=== PATIENT | female | born 1980 | race Caucasian/White ===

== ENCOUNTER 2022-06-04 10:04 | Inpatient (IN) | payer OTHER, SELFPAY ==
[2022-06-04] VITALS (17 sets, daily range): BP systolic 134–207; BP diastolic 85–124; PULSE 97–130; RESP 12–20; TEMP 36.4–37; O2SAT 91–100; BMI 43.2
--- NOTE | 2022-06-04 10:18 | ED_ITS ---
HPI - Abdominal Pain General: Chief Complaint: Abdominal Pain Stated Complaint: abd pain Time Seen by Provider: 06/04/22 10:18 History of Present Illness: Ms. Joseph is a 42-year-old lady presenting to the emergency department due to abdominal pain. She reports onset of symptoms acut jonathan on 06/01 with right lower quadrant pain that radiates throughout the abdomen and into her back. It is sharp and stabbing in character. Moderate to severe in intensity. Worse with laying down and movement. She notes numerous episodes of nonbilious and nonbloody emesis. No other specific changes in health, exacerbating, or alleviating factors identified. Onset (ago): day(s) Pain Consistency: constant Location: RLQ Severity: severe Quality: stabbing and sharp Radiation: epigastric and R flank Exacerbating factors: movement Relieving factors: nothing Associated Symptoms: Reports nausea and vomiting; Denies hematochezia, hematemesis and melena Review of Systems General: Reports: 10 or more systems reviewed and unremarkable except in HPI and below GI: Reports: nausea and vomiting; Denies: hematemesis, hematochezia or melena PFS ED PFSH: Surgical History (Updated 06/12/22 @ 12:49 by Geneva Bocanegra RN) History of Physical Exam Const: COMMON NORMALS: alert GENERAL APPEARANCE: cooperative and well developed HENMT: COMMON NORMALS: normocephalic and atraumatic HEAD & SCALP: normocephalic and atraumatic Eye: COMMON NORMALS: conjunctivae normal CONJUNCTIVA: Yes conjunctivae normal SCLERA: sclerae normal Neck/C-Spine: COMMON NORMALS: supple GENERAL: Yes trachea midline Resp: COMMON NORMALS: clear to auscultation bilaterally EFFORT & INSPEC TION: Yes able to speak in complete sentences AUSCULTATION: clear to auscultation bilaterally Cardio: COMMON NORMALS: regular rate and regular rhythm RATE: regular rate RHYTHM: regular rhythm GI: COMMON NORMALS: Soft to palpation PALPATION: Yes Soft to palpation, Yes Tenderness to palpation present (GI), No Guarding due to palpation present (GI) and No Rigid due to palpation PERCUSSION: normal to percussion Back/Pelvis: OTHER: R>L CVA tenderness Extremity: GENERAL: Yes normal exam except as noted and No edema Neuro: COMMON NORMALS: moves all extremities SENSORIUM/ORIENTATION: Yes alert and No Orientation impaired Psych: COMMON NORMALS: mental status grossly normal and Normal thought process present THOUGHT PROCESS: Normal thought process present Course Vital Signs: Vital signs: Vital Signs Temperature 98.4 F 06/07/22 08:00 Pulse Rate 98 06/07/22 14:00 Respiratory Rate 16 06/07/22 12:00 Blood Pressure 145/87 06/07/22 16:17 Pulse Oximetry 95 06/07/22 12:00 Oxygen Delivery Me thod 06/07/22 12:00 Oxygen Flow Rate 2 06/06/22 20:00 MDM - Abdominal Pain Medical Decision Making 42-year-old lady presenting with abdominal pain. Abdominal tenderness to palpation without evidence of acute surgical abdomen. Additionally there is right greater than left CVA tenderness. Patient is nontoxic in appearance. Laboratory studies notable for leukocytosis, normal hemoglobin. Metabolic panel with evidence of dehydration and mildly elevated creatinine with unclear baseline. Urinalysis with squamous epithelial contamination. CT imaging demonstrates acute appendicitis with inflammation of the terminal ileum. Additional finding includes left-sided staghorn calculi. I discussed this finding with the patient as well as finding of acute appendicitis. Patient treated during ED course with antiemetic, fluids, analgesia and also antibiotics. Patient requires inpatient management of acute appendicitis. The results of ED evaluation were discussed with the patient including plan for admission due to requirement for level of care not available if discharged to prevent significant worsening/deterioration. Patient agreeable with plan. Discussed with general surgery service who was agreeable to admit patient. Medical Records I reviewed the patient's medical records. Lab Data I reviewed the patient's lab results. 06/07/22 05:08 06/07/22 05:08 Labs/Radiology: Radiology Impressions Abdomen/Pelvis CT 06/04/22 10:52 IMPRESSION: 1. Findings consistent with acute appendicitis. 2. Inflammatory changes in the terminal ileum could be related to appendicitis. Recommend follow-up to demonstrate resolution, and to exclude inflammatory bowel disease. 3. The entirety of the left-sided renal collecting system is filled with staghorn calculi extending from the proximal renal calices to the ureteropelvic junction, with prominent peripheral renal caliectasis and cortical thinning. THIS REPORT CONTAINS FINDINGS THAT MAY BE CRITICAL TO PATIENT CARE. The findings were verbally communicated via telephone conference with Sudeep Nova at 12:00 PM REEFER ENGINEER on 06/04/2022. The findings were acknowledged and understood. Laboratory Results WBC 22.1 10^3/uL (4.0-10.0) H 06/05/22 05:36 RBC 4.03 10^6/uL (4.1-5.3) L 06/05/22 05:36 Hgb 11.9 g/dL (11.5-15.3) 06/05/22 05:36 Hct 36.4 % (37.0-47.0) L 06/05/22 05:36 MCV 90.3 fl (81-99) 06/05/22 05:36 MCH 29.5 pg (28.0-34.0) 06/05/22 05:36 MCHC 32.7 g/dL (30.0-36.0) 06/05/22 05:36 RDW 14.2 % (12.1-15.1) 06/05/22 05:36 Plt Count 387 10^3/cmm (130-400) 06/05/22 05:36 MPV 10.1 fL (7.4-10.4) 06/05/22 05:36 Neut % (Auto) 92.3 % 06/05/22 05:36 Lymph % (Auto) 3.0 % 06/05/22 05:36 Ellis % (Auto) 3.9 % 06/05/22 05:36 Eos % (Auto) 0.2 % 06/05/22 05:36 Baso % (Auto) 0.1 % 06/05/22 05:36 Neut # (Auto) 20.35 10^3/uL (1.8-7.7) H 06/05/22 05:36 Lymph # (Auto) 0.7 10^3/uL (0.8-4.8) L 06/05/22 05:36 Ellis # (Auto) 0.9 10^3/uL (0.2-0.9) 06/05/22 05:36 Eos # (Auto) 0.1 10^3/uL (0.0-0.8) 06/05/22 05:36 Baso # (Auto) 0.0 10^3/uL (0.0-0.1) 06/05/22 05:36 Nucleated RBC % (auto) 0 % 06/05/22 05:36 Nucleated RBCs # 0.0 /100WBC 06/05/22 05:36 Sodium 140 mmol/L (136-145) 06/05/22 05:36 Potassium 3.8 mmol/L (3.5-5.1) 06/05/22 05:36 Chloride 108 mmol/L (98-107) H 06/05/22 05:36 Carbon Dioxide 22 mmol/L (22-29) 06/05/22 05:36 Anion Gap 13.8 (5-19) 06/05/22 05:36 BUN 10 mg/dL (6-20) 06/05/22 05:36 Creatinine 0.8 mg/dL (0.5-0.9) 06/05/22 05:36 GFR Calculation 77.9 mL/min (90-130) L 06/05/22 05:36 Glucose 144 mg/dL (65-115) H 06/05/22 05:36 POC Glucose 134 mg/dL (70-110) H 06/05/22 06:31 Calculated Osmolality 292 mOsm/kg (285-295) 06/05/22 05:36 Lactate 2.2 mmol/L (0.5-2.2) 06/04/22 10:35 Calcium 8.2 mg/dL (8.5-10.5) L 06/05/22 05:36 Total Bilirubin 1.1 mg/dL (0.15-1.2) 06/04/22 10:35 AST 17 U/L (0-32) 06/04/22 10:35 ALT 14 U/L (0-33) 06/04/22 10:35 Alkaline Phosphatase 69 U/L (35-105) 06/04/22 10:35 Total Protein 8.4 g/dL (6.6-8.7) 06/04/22 10:35 Albumin 4.4 g/dL (3.5-5.2) 06/04/22 10:35 Globulin 4.0 g/dL (1.3-4.6) 06/04/22 10:35 Lipase 28 U/L (13-60) 06/04/22 10:35 HCG, Qual Negative (Negative) 06/04/22 10:35 Urine Color Yellow (Yellow) 06/04/22 14:32 Urine Appearance Cloudy (CLEAR) A 06/04/22 14:32 Urine pH 8 (5-7) H 06/04/22 14:32 Ur Specific [place] 1.015 (1.005-1.030) 06/04/22 14:32 Urine Protein 1+ (Negative) H 06/04/22 14:32 Urine Glucose (UA) Norm (Normal) 06/04/22 14:32 Urine Ketones Negative (Negative) 06/04/22 14:32 Urine Blood 2+ (Negative) H 06/04/22 14:32 Urine Nitrate Negative (Negative) 06/04/22 14:32 Urine Bilirubin Neg (Negative) 06/04/22 14:32 Prot Sulfosalicylic Acd Positive (Negative) 06/04/22 14:32 Urine Urobilinogen 1 mg/dL (Negative) H 06/04/22 14:32 Ur Leukocyte Esterase 2+ (Negative) H 06/04/22 14:32 Urine RBC 0-4 /hpf (0-2) H 06/04/22 14:32 Urine WBC 55-80 /hpf (0-5) H 06/04/22 14:32 Ur Squamous Epith Cells 25-40 /hpf (0-5) H 06/04/22 14:32 Amorphous Sediment Not Reportable 06/04/22 14:32 Urine Bacteria Trace /hpf (NONE) 06/04/22 14:32 Urine Mucus 1+ /hpf 06/04/22 14:32 Discharge Plan Discharge Patient Disposition: Admitted As Inpatient Admit Provider: Andreas Spencer Clinical Impression: Acute appendicitis Condition: Stable Discharge Diet: Advance as tolerated Discharge Activity: Resume usual activity Coding Level of Care Code ED Wind Farm Engineer for Samy Espinoza
[2022-06-04 10:48] LABS: Basophils # 0.1 10^3/uL (0.0-0.1); Basophils % 0.3 %; Eosinophils % 0.2 %; Hematocrit 41.8 % (37.0-47.0); Hemoglobin 13.8 g/dL (11.5-15.3); Lymphocytes # 1.1 10^3/uL (0.8-4.8); Lymphocytes % 6.2 %; Mean Corpuscular Hemoglobin 29.3 pg (28.0-34.0); Mean Corpuscular Volume 88.7 fl (81-99); Mean Platelet Volume 9.8 fL (7.4-10.4); Monocytes # 0.8 10^3/uL (0.2-0.9); Monocytes % 4.2 %; Neutrophils # 15.98 10^3/uL (1.8-7.7); Neutrophils % 88.8 %; Nucleated Red Blood Cells % 0 %; Platelet Count 548 10^3/cmm (130-400); Red Blood Count 4.71 10^6/uL (4.1-5.3); Red Cell Distribution Width 13.7 % (12.1-15.1)
--- NOTE | 2022-06-04 10:52 | CTR_ITS ---
PROCEDURE INFORMATION: Exam: CT Abdomen And Pelvis With Contrast Exam date and time: 06/04/2022 11:37 AM Age: 42 years old Clinical indication: Abdominal pain; Localized; Right lower quadrant (rlq); Prior surgery; Surgery type: C section; Additional info: Rlq pain, n/v TECHNIQUE: Imaging protocol: Computed tomography of the abdomen and pelvis with contrast. Radiation optimization: All CT scans at this facility use at least one of these dose optimization techniques: automated exposure control; mA and/or kV adjustment per patient size (includes targeted exams where dose is matched to clinical indication); or iterative reconstruction. Contrast material: OMNI 350; Contrast volume: 100 ml; Contrast route: INTRAVENOUS (IV); REPORTING DATA: Count of CT and Cardiac NM exams in prior 12 months: This patient has received 0 known CTs and 0 known cardiac nuclear medicine studies in the 12 months prior to the current study. COMPARISON: No relevant prior studies available. RADIATION DOSE METRICS: Total DLP (mGy-cm): 1172.67 FINDINGS: Liver: The liver is normal in size and contour. Gallbladder and bile ducts: The gallbladder appears unremarkable. No intra- or extra-hepatic biliary ductal dilatation. Pancreas: The pancreas appears normal. Spleen: The spleen appears normal. Adrenal glands: The adrenals appear normal. Kidneys and ureters: The entirety of the left-sided renal collecting system is filled with staghorn calculi extending from the proximal renal calices to the ureteropelvic junction, with prominent peripheral renal caliectasis and cortical thinning. Stomach and bowel: Small hiatal hernia. The remainder of the stomach appears unremarkable. Mild wall thickening in the terminal ileum concerning for mild enteritis. The small bowel loops are not abnormally dilated. The large bowel loops are not abnormally dilated. Appendix: Stone noted at the base of the appendix. The appendix is dilated measuring up to 16 mm in diameter. Appendiceal wall thickening. Periappendiceal fat stranding. Trace free fluid in the pelvis likely related to appendicitis. Intraperitoneal space: No ascites or significant fluid collection. Vasculature: The aorta is nonaneurysmal. The IVC appears normal. Lymph nodes: There are no enlarged lymph nodes. Urinary bladder: The bladder is distended and demonstrates no focal contour abnormality. Reproductive: Unremarkable as visualized. Bones/joints: Unremarkable. Soft tissues: Unremarkable. CT/CT abdomen pelvis w con* [id number] IMPRESSION: 1. Findings consistent with acute appendicitis. 2. Inflammatory changes in the terminal ileum could be related to appendicitis. Recommend follow-up to demonstrate resolution, and to exclude inflammatory bowel disease. 3. The entirety of the left-sided renal collecting system is filled with staghorn calculi extending from the proximal renal calices to the ureteropelvic junction, with prominent peripheral renal caliectasis and cortical thinning. THIS REPORT CONTAINS FINDINGS THAT MAY BE CRITICAL TO PATIENT CARE. The findings were verbally communicated via telephone conference with Sudeep Nova at 12:00 PM ADULT HIGH SCHOOL INSTRUCTOR on 06/04/2022. The findings were acknowledged and understood.
[2022-06-04] MEDS: sodium chloride 0.9% 1,000 ML 999 ML IV (11:00)
[2022-06-04] MEDS: ondansetron 2 mg/ML SDV 2 mL 4 MG IVP (11:00)
[2022-06-04] MEDS: morphine 4 mg/mL SDV 1 mL IVP ×3 (11:00→15:11)
[2022-06-04 11:03] LABS: Alanine Aminotransferase 14 U/L (0-33); Chloride 100 mmol/L (98-107); Lipase 28 U/L (13-60); Sodium 137 mmol/L (136-145); Total Protein 8.4 g/dL (6.6-8.7)
[2022-06-04 11:05] LABS: Lactate (Lactic Acid level) 2.2 mmol/L (0.5-2.2)
[2022-06-04 11:07] LABS: HCG, Serum Qual Negative (Negative)
[2022-06-04 11:34] LABS: Anion Gap 20.7 (5-19); Blood Urea Nitrogen 10 mg/dL (6-20); Calcium 9.4 mg/dL (8.5-10.5); Carbon Dioxide 20 mmol/L (22-29); Glomerular Filtration Rate 60.2 mL/min (90-130); Glucose 160 mg/dL (65-115); Osmolality Calculated 286 mOsm/kg (285-295)
[2022-06-04 11:36] LABS: Albumin Level 4.4 g/dL (3.5-5.2); Alkaline Phosphatase 69 U/L (35-105); Aspartate Amino Transferase 17 U/L (0-32); Potassium 3.7 mmol/L (3.5-5.1); Total Bilirubin 1.1 mg/dL (0.15-1.2)
[2022-06-04] MEDS: iohexol 350 mg/mL 500 mL Btl (per mL) IV (11:36)
[2022-06-04] MEDS: piperacillin-tazobactam 4.5 GM in sodium chloride 0.9% (plus) 50 ML IV (12:15)
--- NOTE | 2022-06-04 13:45 | PC.NURSE ---
ATTEMPTED REPORT NURSE UNAVAILABLE.
--- NOTE | 2022-06-04 13:55 | PC.NURSE ---
REPORT CALLED TO [facility]
[2022-06-04 14:58] LABS: Add Urine Microscopic? YES; Bacteria Urine TRACE /hpf; Bilirubin Urine Neg (Negative); Blood Urine 2+ (Negative); Glucose Urine UA Norm (Normal); Ketones Urine Negative (Negative); Leukocyte Esterase Urine 2+ (Negative); Mucus Urine 1+ /hpf; Nitrate Urine Negative (Negative); Protein Urine 1+ (Negative); RBC Urine 0-4 /hpf (0-2); Specific Gravity, Urine 1.015 (1.005-1.030); Squamous Epithelial Cell Urine 25-40 /hpf (0-5); Sulfosalicylic Acid Urine Positive (Negative); Urine Appearance Cloudy (CLEAR); Urine Color Yellow (Yellow); Urobilinogen Urine 1 mg/dL (Negative); WBC Urine 55-80 /hpf (0-5); pH Urine 8 (5-7)
[2022-06-04] MEDS: sodium chloride 0.9% 1,000 ML 100 ML IV (15:12)
--- NOTE | 2022-06-04 16:15 | PM.HP ---
Providers/Chief Complaint Admitting Physician: Andreas Spencer DO Chief Complaint: abd pain History of Present Illness Heladio Joseph is a 42 year old female who presented to the hospital with a 2-day history of right lower quadrant abdominal pain. She reports that the pain is sharp and constant and radiates to her back. She reports nausea and emesis but denies any hematemesis. She reports diarrhea but denies any hematochezia and/or melena. She has had 2 sections in the past but no other abdominal surgeries. CT in the ER is positive for acute appendicitis. Review of Systems General: Reports: 10 or more systems reviewed and unremarkable except in HPI and below Medications/Allergies Home Medications Medication Instructions Recorded Confirmed Last Taken Type No Known Home Medications 06/04/22 06/04/22 Unknown History Allergies Allergy/AdvReac Type Severity Reaction Status Date / Time No Known Allergies Allergy Verified 06/04/22 10:59 PFSH Acute PFSH: Surgical History History of Female Reproductive History: Date of last menstrual period: 06/04/22 Vitals/I&O/Wt Last Vital Signs Temp 97.6 F 06/04/22 10:08 Pulse 121 H 06/04/22 13:55 Resp 14 06/04/22 15:11 BP 162/111 06/04/22 13:55 Pulse Ox 98 06/04/22 13:55 O2 Del Method 06/04/22 14:55 06/04/22 06/04/22 06/04/22 06:59 14:59 22:59 Intake Total 1050 / 1050 Balance 1050 / 1050 Weight last 48 hrs Weight 260 lb Physical Exam Narrative: General : Patient is well developed , no acute distress, oriented x3 Head : Normal cephalic, a-traumatic. Ears : Pinnae and external canal are normal. Hearing is normal. Eyes : PERRLA, Sclera and injection are normal. No conjunctival discharge. Nose : Mucous membranes are without erythema. Throat : buccal mucosa is normal, gums are without significant recession or hypertrophy. Lungs : Equal chest rise bilaterally, no use of accessory muscles, trachea is midline. Cor : Rate and rhythm are normal. Abdomen : Soft, ND, tender to palpation right lower quadrant, no g/r/m Extremities : No edema, no cyanosis or clubbing, dorsalis pedis pulses are present bilaterally, non-tender to palpation of calves. Upper extremities are normal bilaterally. Back : non-tender to palpation, no CVA tenderness. Neuro : CN II - XII intact, Upper and lower extremities have equal and full strength Data 06/04/22 10:35 06/04/22 10:35 Micro: Microbiology 06/04/22 10:35 Blood Culture - Preliminary Blood SPECIMEN COLLECTED 06/04/22 10:37 Blood Culture - Preliminary Blood SPECIMEN COLLECTED A&P Assessment and plan (1) Acute appendicitis: Plan Laparoscopic Appendectomy The risks and benefits of the procedure, including but not limited to, bleeding, infection, scar, numbness, pain, damage to surrounding structures, conversion to an open procedure, were explained to the patient. He is understanding of the risks and wishes to proceed. Attestations Medical Necessity Statement*: Patient requires at least 1 night in the hospital for IV antibiotics and observation following laparoscopic appendectomy Coding Level of Care Code Acute Code for [facility] Diagnoses Acute appendicitis K35.80
[2022-06-04] MEDS: scopolamine 1.5 Patch 1 PATCH TRANSDERMA (17:07)
--- NOTE | 2022-06-04 17:27 | P.ANESASSM_ITS ---
Pre-Anesthetic Assessment Height/Weight: Height 1.65 m Weight 117.934 kg Temp Pulse Resp BP Pulse Ox O2 Del Method 97.7 F 130 H 20 H 207/123 98 06/04/22 16:58 06/04/22 16:58 06/04/22 16:58 06/04/22 16:58 06/04/22 16:58 06/04/22 16:58 Operation Date: 06/04/22 16:35 Proposed Procedures p Laparoscopic Appendectomy(Not Applicable) - Andreas Spencer DO Familial anesthetic complications: none Was Beta Ely taken within 24 hours: N/A Was Clonidine taken within 24 hours: N/A Social No alcohol and No tobacco Exam alert, oriented x 3, clear to auscultation bilaterally and regular rate & rhythm Airway Submandibular: within normal limits Cervical ROM: within normal limits Mallampati: Class III Dentition: full GI acute abdomen Metabolic Morbid Obesity Anesthetic Plan ASA status: 2E Anesthesia: General (RSI) Medications/Allergies Home Medications Medication Instructions Recorded Confirmed Last Taken Type No Known Home Medications 06/04/22 06/04/22 Unknown History Allergies Allergy/AdvReac Type Severity Reaction Status Date / Time No Known Allergies Allergy Verified 06/04/22 10:59 Current Medications Generic Name Dose Route Start Last Admin Trade Name Freq PRN Reason Stop Dose Admin Sodium Chloride 1,000 mls @ 100 mls/hr 06/04/22 14:41 06/04/22 15:12 Sodium Chloride 0.9% IV 100 mls/hr .Q10H JULIO Administration Morphine Sulfate 4 mg 06/04/22 14:41 06/04/22 15:11 Morphine 4 Mg/Ml Sdv 1 Ml IVP 4 mg Q1H PRN Administration SEVERE PAIN PFSH Anesthesia Surgical History History of Female Reproductive History Date of last menstrual period: 06/04/22 Data Anesthesia 06/04/22 10:35 06/04/22 10:35 Short CBC 06/04/22 Range/Units 10:35 WBC 18.0 H (4.0-10.0) 10^3/uL Hgb 13.8 (11.5-15.3) g/dL Hct 41.8 (37.0-47.0) % MCV 88.7 (81-99) fl Plt Count 548 H (130-400) 10^3/cmm Neut % (Auto) 88.8 % Neut # (Auto) 15.98 H (1.8-7.7) 10^3/uL BMP 06/04/22 10:35 Sodium 137 Potassium 3.7 Chloride 100 Carbon Dioxide 20 L BUN 10 Creatinine 1.0 H Glucose 160 H Calcium 9.4 Liver Function 06/04/22 Range/Units 10:35 Total Bilirubin 1.1 (0.15-1.2) mg/dL AST 17 (0-32) U/L ALT 14 (0-33) U/L Alkaline Phosphatase 69 (35-105) U/L Albumin 4.4 (3.5-5.2) g/dL Urine 06/04/22 Range/Units 14:32 Urine Color Yellow (Yellow) Urine Appearance Cloudy A (CLEAR) Urine pH 8 H (5-7) Ur Specific [place] 1.015 (1.005-1.030) Urine Protein 1+ H (Negative) Urine Glucose (UA) Norm (Normal) Urine Ketones Negative (Negative) Urine Nitrate Negative (Negative) Urine Bilirubin Neg (Negative) Ur Leukocyte Esterase 2+ H (Negative) Urine RBC 0-4 H (0-2) /hpf Urine WBC 55-80 H (0-5) /hpf Microbiology 06/04/22 10:35 Blood Culture - Preliminary Blood SPECIMEN COLLECTED 06/04/22 10:37 Blood Culture - Preliminary Blood SPECIMEN COLLECTED Cardiac Studies: No Data to Display
[2022-06-04] MEDS: lidocaine-epi 2% 20 mL INJ 10 ML INJECTION (17:51)
--- NOTE | 2022-06-04 18:06 | PM.OP ---
Operative Report Date of procedure: June 04, 2022 Pre-op diagnosis: Acute appendicitis Post-op diagnosis: other (Acute suppurative appendicitis) Procedure done: Laparoscopic appendectomy Implants: 19 [place] Shashank drain Specimens removed/disposition: Appendix Surgeon: Dr. Andreas Spencer DO Anesthesia: General Estimated blood loss (mL): 5 Complications: None apparent Brief History: This is a very pleasant 42-year-old female who presents to the hospital with acute appendicitis. Laparoscopic appendectomy was indicated. The risk and benefits were explained and documented. Procedure: Patient was wheeled into the operative room and placed on the OR table in a supine position. Abdomen was inspected prepped and draped in usual sterile fashion. Time-out was performed and all present were in agreement. A 15 blade scalp was used to make a stab incision in the left upper quadrant and intra-abdominal insufflation was achieved using a Veress needle. After localizing the tissue incisions were made and a 12 millimeter trocar was placed into the umbilicus as well as a 5mm in the right lower quadrant and a 5 mm in the left lower quadrant . The appendix was identified and was very significantly inflamed and suppurative. There was significant purulence encapsulated by the omentum. This area was opened and suctioned. There is also significant purulence in the pelvis which was suctioned.. I used the Voyant to ligate the mesoappendix at the base. I then used 2 PDS endo-loops to snare the base of the appendix. I then used the Voyant to ligate the appendix distally. The appendix was removed from the abdomen using an Endo-Catch bag through the umbilical incision. I examined the abdomen and no further pathology was identified. Hemostasis was noted. A 19 [place] Shashank drain was placed through the left lower quadrant and into the pelvis and along the medial aspect of the ascending colon. The drain was sewn in place with 3-0 nylon. I then closed the umbilical site with a Ayan-Lucien and 0 Vicryl suture in a figure of 8 fashion. All ports removed. Skin was washed and dried. Incisions were closed with 4-0 Monocryl in a subcuticular interrupted fashion. Skin glue was applied. Patient tolerated the procedure well.
--- NOTE | 2022-06-04 19:38 | ANE.PACU2 ---
Inpatient post-anesthesia follow up: Airway intact: Yes Vital signs: Temperature 98.0 F Pulse Rate 122 Respiratory Rate 18 Blood Pressure 168/109 Pulse Oximetry 93 Oxygen Delivery Me thod Room Air Oxygen Flow Rate 6 Fraction of Inspir ed Oxygen Hydration adequate: Yes Nausea and vomiting: No Pain level: 3 Mental status: Baseline
--- NOTE | 2022-06-04 20:52 | PC.NURSE ---
Patient given ice chips and educated to proceed slowly, and to notify nurse if unable to tolerate as supported by symptoms such as nausea or other GI upset. Patient left resting comfortably in bed with visitor at bedside.
[2022-06-04] MEDS: piperacillin-tazobactam 3.375 GM in sodium chloride 0.9% (plus) 50 ML IV (22:10)
[2022-06-04 23:00] LABS: Glucose Point of Care 161 mg/dL (70-110)
[2022-06-05] VITALS (11 sets, daily range): BP systolic 135–165; BP diastolic 86–96; PULSE 83–109; RESP 16–21; TEMP 36.7–37.1; O2SAT 94–97
[2022-06-05] MEDS: sodium chloride 0.9% 1,000 ML 100 ML IV ×3 (00:51→20:50)
--- NOTE | 2022-06-05 00:56 | PC.NURSE ---
TOMMY drain output 70ml. Line milked, patient tolerated well.
[2022-06-05] MEDS: piperacillin-tazobactam 3.375 GM in sodium chloride 0.9% (plus) 50 ML IV ×3 (04:13→20:49)
[2022-06-05 06:04] LABS: Basophils % 0.1 %; Eosinophils # 0.1 10^3/uL (0.0-0.8); Eosinophils % 0.2 %; Hematocrit 36.4 % (37.0-47.0); Hemoglobin 11.9 g/dL (11.5-15.3); Lymphocytes # 0.7 10^3/uL (0.8-4.8); Mean Corpuscular HGB Conc 32.7 g/dL (30.0-36.0); Mean Corpuscular Hemoglobin 29.5 pg (28.0-34.0); Mean Corpuscular Volume 90.3 fl (81-99); Mean Platelet Volume 10.1 fL (7.4-10.4); Monocytes # 0.9 10^3/uL (0.2-0.9); Monocytes % 3.9 %; Neutrophils # 20.35 10^3/uL (1.8-7.7); Neutrophils % 92.3 %; Nucleated Red Blood Cells % 0 %; Platelet Count 387 10^3/cmm (130-400); Red Blood Count 4.03 10^6/uL (4.1-5.3); Red Cell Distribution Width 14.2 % (12.1-15.1); White Blood Count 22.1 10^3/uL (4.0-10.0)
[2022-06-05 06:21] LABS: Anion Gap 13.8 (5-19); Blood Urea Nitrogen 10 mg/dL (6-20); Calcium 8.2 mg/dL (8.5-10.5); Carbon Dioxide 22 mmol/L (22-29); Chloride 108 mmol/L (98-107); Creatinine Clr Calc Pharmacy 115.2793; Glomerular Filtration Rate 77.9 mL/min (90-130); Glucose 144 mg/dL (65-115); Osmolality Calculated 292 mOsm/kg (285-295); Potassium 3.8 mmol/L (3.5-5.1); Sodium 140 mmol/L (136-145)
[2022-06-05] MEDS: HYDROcodone-acetaminophen 7.5-325 mg Tablet 1 TAB PO ×2 (06:30→17:56)
[2022-06-05 07:25] LABS: Glucose Point of Care 134 mg/dL (70-110)
[2022-06-05] MEDS: HYDROmorphone 1 mg/mL INJ 1 mL IVP ×2 (08:10→14:20)
--- NOTE | 2022-06-05 10:03 | DCPLANNER ---
Addendum entered by Christel Alvarez 06/07/22 07:49: personalized living manager nurse received the following message from the urology clinic regarding follow up appointment: Pt. is in [id number] call us if she needs us. Original Note: personalized living manager nurse had message to schedule a follow up appointment for patient with urology. personalized living manager nurse sent patients information to the front office staff at urology. Patients information will be printed and reviewed. Clinic will call patient with appointment information.
[2022-06-05] MEDS: ondansetron 2 mg/ML SDV 2 mL 4 MG IVP (11:13)
--- NOTE | 2022-06-05 14:54 | PM.PN ---
Subjective Subjective: Patient seen and examined. Pain controlled. Denies any BM or flatus Vitals/I&O/Wt Last Vital Signs Temp 98.0 F 06/05/22 12:21 Pulse 86 06/05/22 12:21 Resp 18 06/05/22 14:20 BP 154/93 06/05/22 12:21 Pulse Ox 96 06/05/22 14:20 O2 Del Method 06/05/22 12:21 O2 Flow Rate 6 06/04/22 18:25 06/04/22 06/05/22 06/05/22 22:59 06:59 14:59 Intake Total 2390 / 2390 290 / 2680 1530 / 1530 Output Total 90 / 100 Balance 2380 / 2380 200 / 2580 1530 / 1530 Weight last 48 hrs Weight 260 lb Physical Exam Narrative: General: No acute distress, awake alert and oriented x3 Abdomen: Soft, mildly distended, appropriately tender to palpation, no guarding rebound or mass Incisions intact without erythema or exudate Drain cloudy serosanguineous Data 06/05/22 05:36 06/05/22 05:36 Micro: Microbiology 06/04/22 10:35 Blood Culture - Preliminary Blood NEGATIVE TO DATE 06/04/22 10:37 Blood Culture - Preliminary Blood NEGATIVE TO DATE A&P Assessment and plan (1) Acute appendicitis: Plan Status post laparoscopic appendectomy for acute suppurative appendicitis with purulence in the abdomen IV fluids Antibiotics Pain control Regular diet Ambulate Attestations Medical Necessity Statement*: Patient reports at least 1 more night in the hospital for IV antibiotics after laparoscopic appendectomy Coding Level of Care Code Acute Code for [facility] Diagnoses Acute appendicitis K35.80
[2022-06-06] VITALS (11 sets, daily range): BP systolic 150–178; BP diastolic 91–126; PULSE 106–115; RESP 16–18; TEMP 36.5–36.9; O2SAT 92–94
[2022-06-06] MEDS: HYDROcodone-acetaminophen 7.5-325 mg Tablet 1 TAB PO ×2 (00:14→04:42)
[2022-06-06] MEDS: ondansetron 2 mg/ML SDV 2 mL 4 MG IVP ×3 (00:14→08:30)
--- NOTE | 2022-06-06 00:25 | PC.NURSE ---
Patient reported pain and nausea to nurse. Hydrocodone and and zofran were administered to patient per request. Nurse educated and encouraged patient to get up and walk as it would help patient pass gas, wake up bowels, help with nausea and pain, etc. Patient verbalized understanding.
--- NOTE | 2022-06-06 00:33 | PC.NURSE ---
20cc serosanguinous fluid emptied from TOMMY drain. Line milked, patient tolerated well.
[2022-06-06] MEDS: piperacillin-tazobactam 3.375 GM in sodium chloride 0.9% (plus) 50 ML IV ×3 (04:41→20:36)
--- NOTE | 2022-06-06 04:50 | PC.NURSE ---
Nurse educated patient on importance of walking and the problem with inactivity with the goal of eventual discharge in mind. Patient agreed to walk the unit with nurse, and ambulated well.
[2022-06-06 05:48] LABS: Basophils % 0.2 %; Eosinophils # 0.1 10^3/uL (0.0-0.8); Eosinophils % 0.6 %; Hematocrit 34.8 % (37.0-47.0); Lymphocytes # 1.2 10^3/uL (0.8-4.8); Mean Corpuscular HGB Conc 31.6 g/dL (30.0-36.0); Mean Corpuscular Volume 91.8 fl (81-99); Mean Platelet Volume 10.5 fL (7.4-10.4); Monocytes # 0.7 10^3/uL (0.2-0.9); Monocytes % 5.1 %; Neutrophils # 11.07 10^3/uL (1.8-7.7); Neutrophils % 84.8 %; Nucleated Red Blood Cells % 0 %; Platelet Count 282 10^3/cmm (130-400); Red Blood Count 3.79 10^6/uL (4.1-5.3); Red Cell Distribution Width 14.1 % (12.1-15.1); White Blood Count 13.1 10^3/uL (4.0-10.0)
[2022-06-06 06:02] LABS: Slide Review Slide Review Perform
[2022-06-06 06:06] LABS: Anion Gap 16.3 (5-19); Blood Urea Nitrogen 11 mg/dL (6-20); Calcium 8.1 mg/dL (8.5-10.5); Carbon Dioxide 19 mmol/L (22-29); Chloride 107 mmol/L (98-107); Creatinine Clr Calc Pharmacy 115.2793; Glomerular Filtration Rate 77.9 mL/min (90-130); Glucose 104 mg/dL (65-115); Osmolality Calculated 288 mOsm/kg (285-295); Potassium 3.3 mmol/L (3.5-5.1); Sodium 139 mmol/L (136-145)
[2022-06-06] MEDS: sodium chloride 0.9% 1,000 ML 100 ML IV ×2 (08:30→18:41)
[2022-06-06] MEDS: HYDROmorphone 1 mg/mL INJ 1 mL IVP ×4 (08:30→20:36)
[2022-06-06] MEDS: famotidine 20 mg/2 mL INJ IVP (13:20)
--- NOTE | 2022-06-06 13:45 | P.PN_ITS ---
Subjective Subjective: Patient seen and examined. Pain controlled. Denies any BM or flatus Vitals/I&O/Wt Last Vital Signs Temp 98.3 F 06/07/22 04:09 Pulse 104 H 06/07/22 04:09 Resp 18 06/07/22 04:09 BP 184/123 06/07/22 05:00 Pulse Ox 95 06/07/22 04:09 O2 Del Method 06/07/22 04:09 O2 Flow Rate 2 06/06/22 20:00 06/06/22 06/06/22 06/07/22 14:59 22:59 06:59 Intake Total 300 / 300 1050 / 1350 1046.667 / 2396.667 Output Total 40 / 40 10 / 50 Balance 300 / 300 1010 / 1310 1036.667 / 2346.667 Physical Exam Narrative: General: No acute distress, awake alert and oriented x3 Abdomen: Soft, mildly distended, appropriately tender to palpation, no guarding rebound or mass Incisions intact without erythema or exudate Drain cloudy serosanguineous Data 06/07/22 05:08 06/07/22 05:08 A&P Assessment and plan (1) Acute appendicitis: Plan Status post laparoscopic appendectomy for acute suppurative appendicitis with purulence in the abdomen IV fluids Antibiotics Pain control Regular diet Ambulate Likely discharge home tomorrow on antibiotics Attestations Medical Necessity Statement*: Patient reports at least 1 more night in the hospital for IV antibiotics after laparoscopic appendectomy Coding Level of Care Code Acute Code for [facility] Diagnoses Acute appendicitis K35.80
[2022-06-06] MEDS: hydroCHLOROthiazide 25 mg Tablet PO (14:52)
[2022-06-07] VITALS (13 sets, daily range): BP systolic 145–192; BP diastolic 87–134; PULSE 98–121; RESP 16–18; TEMP 36.8–36.9; O2SAT 95–98
[2022-06-07] MEDS: hydroCHLOROthiazide 25 mg Tablet PO (00:54)
[2022-06-07] MEDS: HYDROcodone-acetaminophen 7.5-325 mg Tablet 1 TAB PO (00:54)
[2022-06-07] MEDS: piperacillin-tazobactam 3.375 GM in sodium chloride 0.9% (plus) 50 ML IV ×2 (03:55→11:44)
--- NOTE | 2022-06-07 04:19 | P.CONIM_ITS ---
Providers/Reason For Consult Consulting Physician/Specialty*: Maral Biswas MD/ hospitalist Reason for Consult*: Hypertension Attending Physician: Andreas Spencer DO History of Present Illness History of Present Illness Heladio Joseph is a 42 year old female with morbid obesity, no known medical history, does not visit with physicians routinely, admitted currently for acute appendicitis for which she is status postoperative management on June 04, 2022. I have been called by patient's RN due to concern for hypertensive urgency with blood pressure 192/123. Review of patient's blood pressure recording shows that her average systolic SBP has ranged between 1 42-207 during this current admission. Patient is unaware if she is hypertensive as she has never checked her blood pressure before. She was started on hydrochlorothiazide 25 mg 3 times a day however has not had a sustained blood pressure relief. Currently she denies any chest pain visual disturbances headache. Her main complaint is that she has to get up and urinate multiple times since been started on hydrochlorothiazide. She is running IV fluids currently. Her pain is currently under control. Review of Systems General: Reports: 10 or more systems reviewed and unremarkable except in HPI and below Const: Denies: fever(s), chills or body aches Eyes: Denies: change in vision, blurry vision or photophobia ENMT: Reports: hoarseness; Denies: throat pain, enlarged tonsils, odynophagia or nasal congestion Card: Denies: chest pain, palpitations, irregular heart rhythm, edema, swelling of feet/ankles, lightheadedness, pre-syncope, dyspnea on exertion or orthopnea Resp: Denies: dyspnea, productive cough, non-productive cough, wheezing, stridor, pain on inspiration, change in phlegm color, hemoptysis or chest congestion GI: Denies: abdominal pain, nausea, vomiting, hematemesis, coffee ground greg sis, dysphagia, heartburn, diarrhea, constipation, GI cramping, change in stool character, hematochezia or melena : Denies: flank pain, difficulty voiding, dysuria, urinary frequency, urinary urgency, urinary hesitancy or hematuria Musc: Denies: neck pain, back pain, extremity pain, joint swelling, joint warmth or deformity Neuro: Denies: headache(s), numbness in extremities, weakness in extremities, sensory changes, difficulty walking, frequent falls, dizziness, vertigo, behavioral changes, Slurred speech present or seizure-like activity Psych: Denies: anxiety, depression, suicidal ideation or homicidal ideation Endo: Denies: polyuria, polydipsia, tired all the time, cold intolerance or hot flashes Manuel/Lymph: Denies: easy bruising or easy bleeding Medications/Allergies Home Medications Medication Instructions Recorded Confirmed Last Taken Type No Known Home Medications 06/04/22 06/04/22 Unknown History Allergies Allergy/AdvReac Type Severity Reaction Status Date / Time No Known Allergies Allergy Verified 06/04/22 10:59 Current Medications Generic Name Dose Route Start Last Admin Trade Name Freq PRN Reason Stop Dose Admin Hydrocodone Bitart/Acetaminophen 1 tab 06/04/22 20:40 06/07/22 00:54 Hydrocodone-Acetaminophen 7.5-325 Mg Tablet PO 1 tab Q4H PRN Administration MODERATE PAIN Hydromorphone HCl 1 mg 06/04/22 20:40 06/06/22 20:36 Hydromorphone 1 Mg/Ml Inj 1 Ml IVP 1 mg Q3H PRN Administration PAIN Sodium Chloride 1,000 mls @ 100 mls/hr 06/04/22 14:41 06/06/22 18:41 Sodium Chloride 0.9% IV 100 mls/hr .Q10H JULIO Administration Piperacillin Sod/Tazobactam 50 mls @ 12.5 mls/hr 06/04/22 20:40 06/07/22 03:55 Sod 3.375 gm/ Sodium Chloride IV 12.5 mls/hr Q8H JULIO Administration Protocol Ondansetron HCl 4 mg 06/04/22 14:41 06/06/22 08:30 Ondansetron 2 Mg/Ml Sdv 2 Ml IVP 4 mg Q4H PRN Administration NAUSEA AND VOMITING PFSH Acute PFSH: Surgical History History of Female Reproductive History: Date of last menstrual period: 06/04/22 Vitals/I&O/Wt Last Vital Signs Temp 98.3 F 06/07/22 04:09 Pulse 104 H 06/07/22 04:09 Resp 18 06/07/22 04:09 BP 192/108 06/07/22 04:09 Pulse Ox 95 06/07/22 04:09 O2 Del Method 06/07/22 04:09 O2 Flow Rate 2 06/06/22 20:00 06/06/22 06/06/22 06/07/22 14:59 22:59 06:59 Intake Total 300 / 300 1050 / 1350 50 / 1400 Output Total 40 / 40 Balance 300 / 300 1010 / 1310 50 / 1360 Physical Exam 2 Narrative: General: No acute distress, AO x3 HEENT: PERRLA, pupils bilaterally equal and reactive, pallors not present Chest: Normal vesicular breath sounds, no added sounds, equal good air entry bilaterally CVS: S1-S2 regular, no murmurs, no tachycardia, no gallops, no rubs Abdomen: Soft, nontender, no organomegaly, bowel sounds present Neuro: No focal deficits, no facial deformity, AO x3, power 5/5 in all limbs Data 06/06/22 05:24 06/06/22 05:24 A&P Assessment and plan (1) Uncontrolled hypertension: 42-year-old lady with morbid obesity currently admitted for acute appendicitis management, status post surgery on June 04, has been having uncontrolled blood pressure during the course of admission with systolic pressures ranging between 1 40-200 systolic. Per patient's RN, hospitalist has been consulted for blood pressure management. At the time of assessment blood pressure is 192/102 mmHg Currently no chest pain, no headache. Creatinine is stable Patient is unaware if she has underlying hypertension as she has never been evaluated for this possibility. Given consistently elevated pressures even with good pain control, suspect that patient has chronic hypertension We will start her on hydralazine 10 mg IV every 4 hours as needed for SBP greater than 180. Additionally discontinue hydrochlorothiazide 25 3 times daily Start amlodipine 10 mg p.o. daily. Monitor blood pressure trend with addition of new medication (2) Acute appendicitis: Management per surgery Coding Level of Care Code Acute Code for [facility] Fwd Diagnoses Uncontrolled hypertension I10 Acute appendicitis K35.80
[2022-06-07] MEDS: hyDRALAzine 20 mg/mL INJ 1 mL 10 MG IVP (04:32)
[2022-06-07] MEDS: sodium chloride 0.9% 1,000 ML 100 ML IV (04:39)
[2022-06-07 05:33] LABS: Basophils # 0.1 10^3/uL (0.0-0.1); Basophils % 0.5 %; Eosinophils # 0.3 10^3/uL (0.0-0.8); Eosinophils % 3.1 %; Hemoglobin 11.7 g/dL (11.5-15.3); Lymphocytes # 1.3 10^3/uL (0.8-4.8); Lymphocytes % 14.4 %; Mean Corpuscular HGB Conc 33.4 g/dL (30.0-36.0); Mean Corpuscular Hemoglobin 29.8 pg (28.0-34.0); Mean Corpuscular Volume 89.3 fl (81-99); Mean Platelet Volume 10.2 fL (7.4-10.4); Monocytes # 0.8 10^3/uL (0.2-0.9); Monocytes % 8.6 %; Neutrophils # 6.76 10^3/uL (1.8-7.7); Neutrophils % 73.1 %; Nucleated Red Blood Cells % 0 %; Platelet Count 385 10^3/cmm (130-400); Red Blood Count 3.92 10^6/uL (4.1-5.3); Red Cell Distribution Width 14.2 % (12.1-15.1); White Blood Count 9.3 10^3/uL (4.0-10.0)
[2022-06-07 05:55] LABS: Anion Gap 15.1 (5-19); Blood Urea Nitrogen 7 mg/dL (6-20); Calcium 8.5 mg/dL (8.5-10.5); Carbon Dioxide 23 mmol/L (22-29); Chloride 100 mmol/L (98-107); Creatinine Clr Calc Pharmacy 115.2793; Glomerular Filtration Rate 77.9 mL/min (90-130); Glucose 111 mg/dL (65-115); Osmolality Calculated 279 mOsm/kg (285-295); Potassium 3.1 mmol/L (3.5-5.1); Sodium 135 mmol/L (136-145)
[2022-06-07] MEDS: amlodipine 5 mg Tablet PO ×2 (06:31→08:41)
[2022-06-07] MEDS: labetalol 5 mg/mL SDV 20mL 10 MG IVP (07:42)
[2022-06-07] MEDS: potassium chloride ER 20 mEq Tablet 40 MEQ PO (07:42)
--- NOTE | 2022-06-07 09:19 | PC.CHAP ---
Pastoral Care Encounter/Spiritual Assessment Type of Contact [] Declined rotor balancer visit [] Patient/Family/Request visit [] Outpatient visit [] Follow-up visit [] Physician referral [] Code/Alert [x] Routine visit [] Staff referral [] Actively dying [] Patient sleeping [] Family support [] [] Out of room [] Palliative care [] [x] Receiving care in room [] Pre-surgical visit [] Trauma [] Long length of stay [] ICU visit [] Other: Relational/Emotional Strength [] Patient feels connected with others/family/visitors/staff [] Distress [] Loneliness/isolation [] Abandonment Spirituality of Patient [] Person of Neda [] Attends Voodoo of their Neda [] Believes in Prayer [] Reads Bible or Scientologist materials [] There are Spiritual issues to be addressed Communication Spec Interventions [] Prayer [] Active listening [] Non-anxious presence [] Spiritual/emotional support [] Crisis/trauma care [] Spiritual counseling [] Bereavement support [] Provided bereavement packet [] Provided Bible/devotional materials [] Provided toy/stuffed animal, coloring book to patient or family member [] Provided Communion [] Anointing/[place] [] Salvation [] Completed spiritual assessment [] Other: Impact on Illness or Injury [] Angry [] Fearful [] Anxious [] Often cries [] Exhaustion [] Unable to work [] Unable to attend roman catholic [] Unable to walk/stand [] Unable to read [] Unable to drive [] Unable to eat/drink [] Unable to sleep [] Unable to be with family [] Patient intubated [] Other: Summary Time spent with patient
[2022-06-07] MEDS: chlorthalidone 25 mg Tablet PO (10:02)
[2022-06-07] MEDS: amoxicillin-clav 875-125 mg Tablet 1 TAB PO (13:11)
--- NOTE | 2022-06-07 13:15 | P.DS_ITS ---
Discharge Providers Date of Admission: 06/05/22 11:07 Date of Discharge: June 07, 2022 Attending Provider at Admission: Andreas Spencer DO Attending Provider at Discharge: Andreas Spencer DO Consults: Hospitalist Diagnoses at Discharge Discharge Diagnosis (1) Uncontrolled hypertension: Status: Acute (2) Acute appendicitis: Status: Acute (3) Nephrolithiasis: Status: Acute Reason for Visit Reason for Visit: abd pain Hospital Course Hospital Course This is a pleasant 42-year-old female who presented to the hospital with a 1 day history of abdominal pain. She was found to have acute appendicitis. She is also found to have nephrolithiasis on CT. She underwent laparoscopic appendectomy was found to have acute suppurative appendicitis with intra- abdominal purulence. Postoperatively she had difficult to control hypertension. She states 3 days for IV antibiotics and drainage and was discharged home in good condition. Physical Exam Narrative: General : Patient is well developed , no acute distress, oriented x3 Head : Normal cephalic, a-traumatic. Ears : Pinnae and external canal are normal. Hearing is normal. Eyes : PERRLA, Sclera and injection are normal. No conjunctival discharge. Nose : Mucous membranes are without erythema. Throat : buccal mucosa is normal, gums are without significant recession or hypertrophy. Lungs : Equal chest rise bilaterally, no use of accessory muscles, trachea is midline. Cor : Rate and rhythm are normal. Abdomen : Soft, ND, appropriately tender, no g/r/m Incisions intact without erythema or exudate Extremities : No edema, no cyanosis or clubbing, dorsalis pedis pulses are present bilaterally, non-tender to palpation of calves. Upper extremities are normal bilaterally. Back : non-tender to palpation, no CVA tenderness. Neuro : CN II - XII intact, Upper and lower extremities have equal and full strength Discharge Data Studies Completed and Pending Completed Studies During Hospitalization Category Date Time Status CT abdomen pelvis w con* [id number] Stat Cat Scan 06/04/22 10:52 Completed Pathology: Surgical [PTH] Routine Pth 06/04/22 18:23 Completed Pending at discharge Category Date Time Status Blood Culture Stat Lab 06/04/22 10:35 Results Urine Culture Stat Lab 06/07/22 10:05 Received Radiology Impressions Abdomen/Pelvis CT 06/04/22 10:52 IMPRESSION: 1. Findings consistent with acute appendicitis. 2. Inflammatory changes in the terminal ileum could be related to appendicitis. Recommend follow-up to demonstrate resolution, and to exclude inflammatory bowel disease. 3. The entirety of the left-sided renal collecting system is filled with staghorn calculi extending from the proximal renal calices to the ureteropelvic junction, with prominent peripheral renal caliectasis and cortical thinning. THIS REPORT CONTAINS FINDINGS THAT MAY BE CRITICAL TO PATIENT CARE. The findings were verbally communicated via telephone conference with Sudeep Nova at 12:00 PM [employer] on 06/04/2022. The findings were acknowledged and understood. Laboratory Results WBC 9.3 10^3/uL (4.0-10.0) 06/07/22 05:08 RBC 3.92 10^6/uL (4.1-5.3) L 06/07/22 05:08 Hgb 11.7 g/dL (11.5-15.3) 06/07/22 05:08 Hct 35.0 % (37.0-47.0) L 06/07/22 05:08 MCV 89.3 fl (81-99) 06/07/22 05:08 MCH 29.8 pg (28.0-34.0) 06/07/22 05:08 MCHC 33.4 g/dL (30.0-36.0) D 06/07/22 05:08 RDW 14.2 % (12.1-15.1) 06/07/22 05:08 Plt Count 385 10^3/cmm (130-400) D 06/07/22 05:08 MPV 10.2 fL (7.4-10.4) 06/07/22 05:08 Neut % (Auto) 73.1 % 06/07/22 05:08 Lymph % (Auto) 14.4 % 06/07/22 05:08 [place] % (Auto) 8.6 % 06/07/22 05:08 Eos % (Auto) 3.1 % 06/07/22 05:08 Baso % (Auto) 0.5 % 06/07/22 05:08 Neut # (Auto) 6.76 10^3/uL (1.8-7.7) 06/07/22 05:08 Lymph # (Auto) 1.3 10^3/uL (0.8-4.8) 06/07/22 05:08 [place] # (Auto) 0.8 10^3/uL (0.2-0.9) 06/07/22 05:08 Eos # (Auto) 0.3 10^3/uL (0.0-0.8) 06/07/22 05:08 Baso # (Auto) 0.1 10^3/uL (0.0-0.1) 06/07/22 05:08 Nucleated RBC % (auto) 0 % 06/07/22 05:08 Nucleated RBCs # 0.0 /100WBC 06/07/22 05:08 Sodium 135 mmol/L (136-145) L 06/07/22 05:08 Potassium 3.1 mmol/L (3.5-5.1) L 06/07/22 05:08 Chloride 100 mmol/L (98-107) 06/07/22 05:08 Carbon Dioxide 23 mmol/L (22-29) 06/07/22 05:08 Anion Gap 15.1 (5-19) 06/07/22 05:08 BUN 7 mg/dL (6-20) 06/07/22 05:08 Creatinine 0.8 mg/dL (0.5-0.9) 06/07/22 05:08 GFR Calculation 77.9 mL/min (90-130) L 06/07/22 05:08 Glucose 111 mg/dL (65-115) 06/07/22 05:08 POC Glucose 134 mg/dL (70-110) H 06/05/22 06:31 Calculated Osmolality 279 mOsm/kg (285-295) L 06/07/22 05:08 Lactate 2.2 mmol/L (0.5-2.2) 06/04/22 10:35 Calcium 8.5 mg/dL (8.5-10.5) 06/07/22 05:08 Total Bilirubin 1.1 mg/dL (0.15-1.2) 06/04/22 10:35 AST 17 U/L (0-32) 06/04/22 10:35 ALT 14 U/L (0-33) 06/04/22 10:35 Alkaline Phosphatase 69 U/L (35-105) 06/04/22 10:35 Total Protein 8.4 g/dL (6.6-8.7) 06/04/22 10:35 Albumin 4.4 g/dL (3.5-5.2) 06/04/22 10:35 Globulin 4.0 g/dL (1.3-4.6) 06/04/22 10:35 Lipase 28 U/L (13-60) 06/04/22 10:35 HCG, Qual Negative (Negative) 06/04/22 10:35 Urine Color Yellow (Yellow) 06/04/22 14:32 Urine Appearance Cloudy (CLEAR) A 06/04/22 14:32 Urine pH 8 (5-7) H 06/04/22 14:32 Ur Specific [place] 1.015 (1.005-1.030) 06/04/22 14:32 Urine Protein 1+ (Negative) H 06/04/22 14:32 Urine Glucose (UA) Norm (Normal) 06/04/22 14:32 Urine Ketones Negative (Negative) 06/04/22 14:32 Urine Blood 2+ (Negative) H 06/04/22 14:32 Urine Nitrate Negative (Negative) 06/04/22 14:32 Urine Bilirubin Neg (Negative) 06/04/22 14:32 Prot Sulfosalicylic Acd Positive (Negative) 06/04/22 14:32 Urine Urobilinogen 1 mg/dL (Negative) H 06/04/22 14:32 Ur Leukocyte Esterase 2+ (Negative) H 06/04/22 14:32 Urine RBC 0-4 /hpf (0-2) H 06/04/22 14:32 Urine WBC 55-80 /hpf (0-5) H 06/04/22 14:32 Ur Squamous Epith Cells 25-40 /hpf (0-5) H 06/04/22 14:32 Amorphous Sediment Not Reportable 06/04/22 14:32 Urine Bacteria Trace /hpf (NONE) 06/04/22 14:32 Urine Mucus 1+ /hpf 06/04/22 14:32 Procedures Performed Laparoscopic appendectomy Vitals Last Vital Signs Temp 98.4 F 06/07/22 08:00 Pulse 101 H 06/07/22 12:00 Resp 16 06/07/22 12:00 BP 157/104 06/07/22 12:00 Pulse Ox 95 06/07/22 12:00 O2 Del Method 06/07/22 12:00 O2 Flow Rate 2 06/06/22 20:00 Discharge Plan Discharge Patient Disposition: Home Condition: Stable Prescriptions: New clonidine HCl 0.1 mg Tablet 0.1 mg PO Q12H 30 Days Qty: 60 0RF chlorthalidone 25 mg Tablet 25 mg PO DAILY 30 Days Qty: 30 0RF amlodipine 10 mg Tablet 10 mg PO DAILY 30 Days Qty: 30 0RF cefdinir 300 mg capsule 300 mg PO BID 5 Days Qty: 10 0RF amoxicillin-pot clavulanate 875-125 mg tablet 1 tab PO BID Qty: 22 0RF hydrocodone-acetaminophen 5-325 mg tablet 1 tab PO Q4H PRN (Reason: pain) Qty: 30 0RF docusate sodium [Colace] 100 mg capsule 100 mg PO BID Qty: 20 0RF Discharge Orders: Discharge Order (Routine); Ordered 06/07/22 Ordered By: Andreas Spencer Referrals: Phani Medley [Referring] - 1 week (raymon delgado) Lita Hernandez FNP [Staff Physician] - (Called to set up PCP appointment. They will reach out to Lita and make sure she is accepting patients and if so they will call patient w/ appt. time.) Andreas Spencer DO [Physician] - 1 week Discharge Diet: Advance as tolerated Discharge Activity: Resume usual activity Patient Instructions: Opioid Safety, Post Anesthesia Care Activity Restrictions/Additional Instructions: - For your blood pressure please take amlodipine 10 mg once daily -Take chlorthalidone 25 mg once daily -With clonidine 0.1 mg twice daily -Please see your primary care physician next week on Sunday for blood pressure check -Please have your primary care provider recheck your potassium, and your kidney function -For your kidney stone, please see Dr. Medley, from [facility] Do not soak incisions underwater for 2 weeks. Shower daily. Leave bandage over drain site on for 2 days and then remove Discharge Attestations Time Spent in Discharge Care*: less than 30 min Quality Metrics Clinical Quality Measures [ No reported AMI, CVA or VTE this stay] Coding Level of Care Code Acute Code for [facility] Diagnoses Uncontrolled hypertension I10 Acute appendicitis K35.80 Nephrolithiasis N20.0
[2022-06-07] MEDS: cloNIDine 0.1 mg Tablet PO (13:17)
--- NOTE | 2022-06-07 13:43 | PM.PN ---
Subjective Subjective: Patient was seen this morning, she tells me that she has not seen a physician in many years, she thinks she has a history of high blood pressure, does report intermittent dysuria, Vitals/I&O/Wt Last Vital Signs Temp 98.4 F 06/07/22 08:00 Pulse 101 H 06/07/22 12:00 Resp 16 06/07/22 12:00 BP 157/104 06/07/22 13:17 Pulse Ox 95 06/07/22 12:00 O2 Del Method 06/07/22 12:00 O2 Flow Rate 2 06/06/22 20:00 06/06/22 06/07/22 06/07/22 22:59 06:59 14:59 Intake Total 1050 / 1350 1046.667 / 2396.667 307.292 / 307.292 Output Total 40 / 40 10 50 500 / 500 Balance 1010 / 1310 1036.667 / 2346.667 -192.708 / -192.708 Physical Exam Const: COMMON NORMALS: no acute distress and patient oriented x3 Resp: COMMON NORMALS: normal respiratory effort, No retractions, No use of accessory muscles and clear to auscultation bilaterally AUSCULTATION: clear to auscultation bilaterally Cardio: COMMON NORMALS: regular rate, regular rhythm, S1 normal heart sound present and S2 normal heart sound present RATE: regular rate RHYTHM: regular rhythm HEART SOUNDS: S1 normal heart sound present and S2 normal heart sound present GI: COMMON NORMALS: Normal to inspection, nondistended, normoactive bowel sounds present and non-tender OTHER: TOMMY drain in place, Surgical site clean and dry Extremity: COMMON NORMALS: no pedal edema Neuro: COMMON NORMALS: patient oriented x3 Psych: COMMON NORMALS: mental status grossly normal Data 06/07/22 05:08 06/07/22 05:08 A&P Assessment and plan (1) Uncontrolled hypertension: 42-year-old lady with morbid obesity currently admitted for acute appendicitis management, status post surgery on June 04, has been having uncontrolled blood pressure during the course of admission with systolic pressures ranging between 1 40-200 systolic. Per patient's RN, hospitalist has been consulted for blood pressure management. At the time of assessment blood pressure is 192/102 mmHg Currently no chest pain, no headache. Creatinine is stable Patient is unaware if she has underlying hypertension as she has never been evaluated for this possibility. Given consistently elevated pressures even with good pain control, suspect that patient has chronic hypertension We will start her on hydralazine 10 mg IV every 4 hours as needed for SBP greater than 180. Chlorthalidone 25 mg once daily Amlodipine 10 mg once daily We will add on clonidine 0.1 twice daily Have her see her primary care provider next week Sunday recheck kidney function potassium If any chest pain, palpitations, shortness of breath struggling symptoms go to emergency room She has a staghorn colliculi, left kidney, spoke to urology, she needs outside referral for evaluation, referral sent to [facility] discharged on cefdinir for UTI (2) Acute appendicitis: Management per surgery (3) Staghorn calculus: Attestations Medical Necessity Statement*: Patient will be discharged for uncontrolled hypertension, left staghorn colliculi Diagnoses Uncontrolled hypertension I10 Acute appendicitis K35.80 Staghorn calculus N20.0
--- NOTE | 2022-06-07 14:14 | PC.NURSE ---
TOMMY DRAIN REMOVED PER DR. ALCOCER ORDERS. COVADERM DRESSING APPLIED.
== END 2022-06-07 16:18 | disposition home or self-care (01) | DRG 342 ==
LOC: ER 12:07 → MEDSURG 13:59
PROVIDERS: Admitting Provider Surgery; Emergency Provider Emergency Medicine; Visit Provider Surgery
PROC: 0DTJ4ZZ Resection of Appendix, Percutaneous Endoscopic Approach (ICD-10-PCS; CPT 44970; principal; 2022-06-04 16:35)
DX: K35.80 Unspecified acute appendicitis (principal); Z68.41 Body mass index [BMI] 40.0-44.9, adult; I10 Essential (primary) hypertension; E66.01 Morbid (severe) obesity due to excess calories; N20.0 Calculus of kidney
CPT/HCPCS: 36415; 36416; 74177; 80048; 80053; 81001; 82962; 83605; 83690; 84703; 85025; 87040; 87086; 88304; 96361; 96374; 96375; 96376; 99285; G0378; J0131; J0330; J0360; J1100; J1170; J1200; J1885; J2250; J2270; J2405; J2543; J2704; J2710; J3010; J3490; J7030; Q9967